=== PATIENT | female | born 1955 | race Caucasian/White ===

== ENCOUNTER → 2022-03-01 | Outpatient (CLI) | payer BC ==
--- NOTE | 2022-03-01 16:42 | Diagnostic Imaging Report ---
PROCEDURE: CT abdomen and pelvis without contrast. TECHNIQUE: Multiple contiguous axial images were obtained through the abdomen and pelvis without the use of intravenous contrast. Auto Exposure Controls were utilized during the CT exam to meet ALARA standards for radiation dose reduction. INDICATION: Flank pain with history of urolithiasis and recurrent UTIs. COMPARISON: No comparison available FINDINGS: The lung bases demonstrate no findings of pneumonia or edema. There is no pleural or pericardial effusion. The noncontrast appearance of the liver is unremarkable. There is no radiodense stone within the gallbladder. There are no findings of biliary dilatation. The pancreas is normal. The spleen is normal in size. There is no adrenal mass. The right kidney demonstrates no evidence of hydronephrosis. The right ureter appears normal in caliber. There is no right-sided stone evident. The left kidney demonstrates what appears to be mild pelvocaliectasis. The proximal and mid aspect of the ureter are normal in caliber. The distal aspect is difficult to visualize as this passes through the pelvis. There are multiple pelvic calcifications and phleboliths. On image 152 there is a questionable stone that is near the expected location of the left ureterovesicular junction. A tiny distal ureteral stone could not be excluded. This measures approximately 2 mm in size. There are no findings of bowel obstruction. There is moderate stool within the colon. The appendix is normal. There is no free fluid. The patient is status post hysterectomy. There is no pathologic adenopathy. There is no free air. The aorta is normal in caliber. There are degenerative features within the spine without acute or suspicious osseous abnormality IMPRESSION: 1. There appears to be mild left-sided pelvocaliectasis. The ureter appears to be normal in caliber where visualized. Assessment within the low pelvis is limited as there are loops of bowel within the pelvis as well as numerous apparent pelvic phleboliths. There is a single stone measuring 1 to 2 mm on image 152 that cannot be confirmed to be extra-ureteral in location. This may be at the left UVJ. The remainder of the calcifications appears to be phleboliths. Dictated by: Dictated on workstation # [id number]
== END ==
LOC: RAD 14:15
PROVIDERS: ATTEND Urology
DX: N20.1 Calculus of ureter (principal); N39.0 Urinary tract infection, site not specified
CPT/HCPCS: 74176